=== PATIENT | male | born 1975 | race Caucasian/White ===

== ENCOUNTER 2017-04-30 20:33 | Emergency (ER) | payer BC ==
[~2017-04-30 20:33] MED LIST: KETEK400 MG; PRILOSEC PO; [UNRECOGNIZED DRUG - OTHER]
== END 2017-04-30 23:20 | disposition home or self-care (01) ==
LOC: SED 20:33
DX: L98.8 Other specified disorders of the skin and subcutaneous tissue (principal); F17.200 Nicotine dependence, unspecified, uncomplicated; Z79.899 Other long term (current) drug therapy
CPT/HCPCS: 11200; 99283